=== PATIENT | male | born 1985 | race Caucasian/White ===

== ENCOUNTER 2018-04-23 19:42 | Emergency (ER) | payer OTHER ==
[2018-04-24] MEDS: HYDROCODONE/APAP (10/325) TAB PO (02:13)
[2018-04-24] MEDS: KETOROLAC 30 MG INJ IM (02:13)
== END 2018-04-24 04:46 | disposition home or self-care (01) ==
LOC: FTE 19:42
DX: S82.64XA Nondisplaced fracture of lateral malleolus of right fibula, initial encounter for closed fracture (principal); X50.1XXA Overexertion from prolonged static or awkward postures, initial encounter; Y92.9 Unspecified place or not applicable
CPT/HCPCS: 29515; 73610-RT; 73630; 96372; 99284-25